=== PATIENT | male | born 1975 | race Caucasian/White ===

== ENCOUNTER 2021-05-02 11:09 | Inpatient (IN) | payer OTHER, SELFPAY ==
[2021-05-02] VITALS (32 sets, daily range): BP systolic 96–139; BP diastolic 74–105; PULSE 56–74; RESP 11–21; TEMP 36.7–36.8; O2SAT 90–100; BMI 32.3
--- NOTE | ~2021-05-02 | XR_ITS ---
EXAMINATION: XR chest 1V portable EXAM DATE: 05/02/2021 11:34 INDICATION: Midsternal chest pain radiating to left arm. Emesis. TECHNIQUE: Portable AP frontal chest x-ray was obtained. There is no prior study for comparison. FINDINGS: The lungs are clear. There are no pleural effusions. Cardiac silhouette is prominent but magnified on this AP technique. There is no pneumothorax suspected. The bones and soft tissues are unremarkable. IMPRESSION: No acute cardiopulmonary findings. Reviewed, dictated and finalized at location B. E CHECKER
--- NOTE | ~2021-05-02 | XR_ITS ---
XR chest 1V portable DATE: 05/04/2021 10:20 INDICATION: Shortness of breath TECHNIQUE: Portable AP chest on 05/04/2021 at 1004 hours COMPARISON: 05/02/2021 portable AP chest FINDINGS: There is bibasilar infiltrate and/atelectasis, most prominent in the left lower lobe. Heart size is not optimally evaluated on AP projection because of magnification. No pleural effusion or pulmonary vascular congestion or pneumothorax is evident. IMPRESSION: Bibasilar infiltrates and/atelectasis, most prominent in the left lower lobe Reviewed, dictated and finalized at location A. RTRAIN DESIGN ENGINEER IMPRESSION: Bibasilar infiltrates and/atelectasis, most prominent in the left l ower lobe
--- NOTE | 2021-05-02 11:15 | ECG_ITS ---
Measurements Intervals [place] Rate: 54 P: [place]: 0 QRS: 13 QRSD: 126 T: 79 QT: 436 QTc: 416 Interpretive Statements SINUS RHYTHM BORDERLINE AV CONDUCTION DELAY INTRAVENTRICULAR CONDUCTION DELAY INFERIOR ST ELEVATION MYOCARDIAL INFARCT- ACUTE POSTERIOR INFARCT, ACUTE BASELINE ARTIFACT- II, III, AVR, AVF, V3-V6 ABNORMAL ECG Electronically Signed On 05-02-2021 12:55:30 PARKS RECREATION DIRECTOR by Kong Jefferson D.O.
--- NOTE | 2021-05-02 11:18 | ED_ITS ---
HPI - Chest Pain General Chief Complaint: Chest Pain Stated Complaint: STEMI Time Seen by Provider: 05/02/21 11:14 Source: patient, EMS and RN notes reviewed Mode of arrival: EMS Limitations: no limitations History of Present Illness HPI narrative: Patient presents by ambulance with chest pain started 45 minutes prior to arrival to the emergency room, 6 out of 10,. History of hypertension, no family history of coronary artery disease, patient does not smoke. EKG on arrival to the emergency room showed acute inferior HI. STEMI code was called prior to patient arrival to the emergency room. Related Data Allergies Allergy/AdvReac Type Severity Reaction Status Date / Time No Known Allergies Allergy Verified 05/02/21 11:15 Review of Systems Review of Systems: CONSTITUTIONAL: Denies fever, chills, or sweats. EYES: Denies visual changes, redness, or discharge. ENT: Denies rhinorrhea, congestion, sore throat, or otalgia. CARDIOVASCULAR: Denies chest pain, palpitations, or edema. RESPIRATORY: Denies cough or dyspnea. GASTROINTESTINAL: Denies abdominal pain, nausea, vomiting, or diarrhea. GENITOURINARY: Denies dysuria or hematuria. SKIN: Denies rash or itching. MUSCULOSKELETAL: Denies back pain, joint pain, or myalgia. NEUROLOGIC: Denies headache, numbness, or weakness. PSYCHIATRIC: Denies anxiety or depression. Exam Narrative: General appearance: Well-developed, well-nourished Skin: Normal color Head: Normocephalic, nontraumatic Eyes: Clear conjunctiva ENT: Oropharynx normal, ears normal, nose normal Neck: Supple, nontender Chest and respiratory: Airway patent, no respiratory distress, no accessory muscle use Heart: Regular rate/rhythm Abdomen: Soft, nontender, no organomegaly, quiet bowel sounds Vascular: Normal peripheral pulses, normal capillary refill. 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 tested, no gross motor deficit Course Course Emergency Course: Stable Vital Signs Vital signs: Vital Signs Temperature 36.8 C 05/02/21 11:10 Pulse Rate 58 L 05/02/21 11:10 Respiratory Rate 20 05/02/21 11:10 Blood Pressure 123/93 H 05/02/21 11:10 Pulse Oximetry 100 05/02/21 11:10 Temperature 36.8 C 05/02/21 11:10 Pulse Rate 58 L 05/02/21 11:10 Respiratory Rate 20 05/02/21 11:10 Blood Pressure 123/93 H 05/02/21 11:10 Pulse Oximetry 100 05/02/21 11:10 MDM - Chest Pain MDM Narrative Medical decision making narrative: Acute inferior HI Differential Diagnosis Differential diagnosis: Likely st elevation myocardial infarction Critical Care Time Critical Care Time Critical Care Time: Yes Total Critical Care Time: 45 Discharge Plan Discharge Clinical Impression: ST elevation (STEMI) myocardial infarction Patient Disposition: Still a Patient Condition: Guarded Prognosis Additional Instructions: Admit to cardiac cath Follow-up/Referrals: Shelby,Ricky Dickson PA-C [Primary Care Provider] -
[2021-05-02] MEDS: MORPHINE SULFATE (*CRX) 4 MG/ML INJ IV PUSH (11:20)
[2021-05-02] MEDS: ONDANSETRON INJ 4 MG/2 ML VIAL IV PUSH ×3 (11:21→18:46)
[2021-05-02] MEDS: HEPARIN SODIUM 5,000 UNITS/ML VIAL 4000 UNITS IV PUSH (11:21)
[2021-05-02] MEDS: MORPHINE SULFATE (*CRX) 4 MG/ML INJ (11:34)
--- NOTE | 2021-05-02 11:34 | PC.NURSE ---
2 mg of morphine given per protocol.
--- NOTE | 2021-05-02 11:35 | PC.NURSE ---
cp rating 6-7/10. p 58. bp 135/96. pts at bedside.
[2021-05-02 11:38] LABS: Basophils Absolute Auto 0.1 K/mm3 (0.0-0.1); Basophils Percent Auto 1.1 % (0.2-1.2); Eosinophils Absolute Auto 0.2 K/mm3 (0-0.3); Hematocrit 51.9 % (42.0-52.0); Hemoglobin 17.4 g/dL (14.0-18.0); Immature Granulocyte Absolute 0.02 K/mm3 (0.00-0.031); Immature Granulocyte Percent A 0.2 % (0-0.5); Lymphocytes Absolute Auto 3.14 K/mm3 (0.9-3.2); Lymphocytes Percent Auto 32.3 % (18.3-44.2); Mean Corpuscular HGB Conc 33.5 g/dl (32-36); Mean Corpuscular Hemoglobin 31.5 pg (26-34); Monocytes Absolute Auto 0.8 K/mm3 (0.1-0.6); Monocytes Percent Auto 8.1 % (2.6-8.5); Neutrophils Absolute Auto 5.5 K/mm3 (1.3-6.7); Neutrophils Percent Auto 56.3 % (45.5-73.1); Platelet Count Result 196 k/mm3 (150-375); Red Blood Count 5.52 M/mm3 (4.6-6.20); Red Cell Distribution Width 12.6 % (11.5-14.5); White Blood Count 9.7 K/mm3 (4.5-10.0)
--- NOTE | 2021-05-02 11:43 | PM.IMHP ---
H&P: HPI History of Present Illness Date/Time: 05/02/21 11:43 Chief Complaint: Chest pain Narrative: Date of service: 05/02/2021 Reason for admission: STEMI History : Patient is a 45 yo male with a history of polycystic kidney disease and HTN who presented to the ED with chest pain. Pain started 1 hour prior to admission. Acute onset with radiation to Left arm. Associated N, SOB, Vomiting and clamminess. Initial ECG show Inferior ST elevation with posterior extension. Heparin, aspirin, morphine given. No recent CP, SOB, syncope, presyncope, PND, orthopnea, palpitations or edema. Review of Systems Review of Systems: All systems reviewed & are unremarkable except as noted in HPI and below Constitutional: Constitutional: Denies weakness Eyes: Eyes: Denies blurry vision ENT: Reports Normal hearing present Cardiovascular: Cardiovascular: Reports chest pain Respiratory: Respiratory: Reports dyspnea Gastrointestinal: Gastrointestinal: Reports nausea and Reports vomiting Genitourinary: Genitourinary: Denies dysuria Musculoskeletal: Musculoskeletal: Denies neck pain Integumentary/Breasts: Skin/Breast: Denies dry skin and Denies pruritus Neurologic: Denies headache(s) and Denies numbness Psychiatric: Psychiatric: Denies no additional psychiatric complaints and Denies behavioral changes Endocrine: Endocrine: Denies cold intolerance Hematologic/Lymphatic: Hematologic/Lymphatic: Denies easy bleeding Allergic/Immunologic: Allergic/Immunologic: Denies GI upset with certain foods PMFSH Past Medical History Medical History (Updated 05/02/21 @ 11:59 by Jovani Wooten MD) Hypertension Polycystic kidney disease Family History Family History (Updated 05/02/21 @ 12:00 by Jovani Wooten MD) Mother Heart disease Father Polycystic kidney disease Social History Social History (Updated 05/02/21 @ 12:01 by Jovani Wooten MD) Social History: social alcohol and no drug use Smoking status: Never smoker Meds Home Medications and Allergies Home Medications Medication Instructions Recorded Confirmed Type No Home Medications 05/02/21 05/02/21 History Allergies Allergy/AdvReac Type Severity Reaction Status Date / Time No Known Allergies Allergy Verified 05/02/21 11:15 Vital Signs Vital Signs - 24 hr 05/02/21 11:10 05/02/21 11:26 05/02/21 11:30 Temperature 36.8 C Pulse Rate 58 L 57 L 56 L Respiratory Rate 20 17 20 Blood Pressure 123/93 H Pulse Oximetry 100 99 100 05/02/21 11:32 Temperature Pulse Rate 57 L Respiratory Rate 11 L Blood Pressure 136/105 H Pulse Oximetry 97 Exam Narrative: awake alert oriented appears to be in distress Const: General: in distress HENMT: General nose exam: Normal nares present Eyes: Sclera: sclerae normal Neck: Neck: supple and no JVD Chest: Other: no reproducible chest wall pain to palpation Resp: Auscultation: clear to auscultation bilaterally Cardio: Rate: regular rate Rhythm: regular rhythm GI: Inspection: non-distended GI Palp: Yes Soft to palpation and No Tenderness to palpation present (GI) Skin: General skin exam: normal color Neuro: Cognition (Neuro): normal cognition Speech: normal speech Extrem: General: normal to inspection Psych: Mental Status: mental status grossly normal H&P: Results ECG Interpretation: EKG is personally reviewed and analyzed showing inferiorposterior acute injury. Abnormal EKG Assessment and Plan Assessment and plan (1) ST elevation (STEMI) myocardial infarction: Qualifiers: Involved coronary artery: unspecified coronary artery Qualified Code(s): I21.3 - ST elevation (STEMI) myocardial infarction of unspecified site Code(s): I21.3 - ST elevation (STEMI) myocardial infarction of unspecified site Status: Acute Assessment and Plan: patient is presenting with an acute inferior posterior myocardial infarction. He has alre
--- NOTE | 2021-05-02 11:49 | PC.NURSE ---
Pt taken to lab tech by cath team
[2021-05-02 11:53] LABS: Alanine Aminotransferase 34 U/L (4-50); Albumin Level 4.8 g/dL (3.5-5.1); Alkaline Phosphatase 72 U/L (38-126); Anion Gap 10 mmol/L (8-16); Aspartate Amino Transferase 29 U/L (17-59); Bilirubin,Total 0.8 mg/dL (0.2-1.3); Blood Urea Nitrogen 32 mg/dL (9-20); Calcium 10.3 mg/dL (8.4-10.2); Carbon Dioxide 26 mmol/L (22-30); Chloride 103 mmol/L (98-107); Cholesterol 177 mg/dL (0-200); Estimated CRCL calculation 73 ml/min; Estimated Glomerular Filt Rate 43; Glucose 100 mg/dL (65-110); HDL Direct 42 mg/dL; Potassium 3.7 mmol/L (3.4-5.0); Sodium 139 mmol/L (137-145); Triglycerides 280 mg/dL (<150)
[2021-05-02 12:03] LABS: LDL Cholesterol Direct 76 mg/dL
[2021-05-02 12:06] LABS: Troponin I < 0.012 ng/mL (0.000-0.034)
--- NOTE | 2021-05-02 13:03 | ECG_ITS ---
Measurements Intervals [place] Rate: 71 P: 9 [place]: 224 QRS: -29 QRSD: 135 T: 19 QT: 411 QTc: 447 Interpretive Statements SINUS RHYTHM WITH FIRST DEGREE AV BLOCK VENTRICULAR PREMATURE COMPLEX INCOMPLETE RIGHT BUNDLE BRANCH BLOCK INFERIOR INFARCT, PROBABLY RECENT NONSPECIFIC ST ELEVATION IN ANTEROLATERAL LEADS BASELINE ARTIFACT- I, II, AVR ABNORMAL ECG Electronically Signed On 05-02-2021 14:47:57 SURFACE ROOM SHOP OPTICIAN by Kong Jefferson D.O.
--- NOTE | 2021-05-02 13:08 | WPDCARDPROC ---
Cardiac Cath Procedure Note Date of procedure:: 05/02/21 Performing physician:: Santino Rollins MD Indication:: inferior wall ND Brief clinical history:: this is a 45-year-old patient without previous history of cardiac disease who developed chest pain about an hour prior to coming into the hospital emergency room this morning. His ECG is diagnostic of acute inferior wall current of injury. In this setting he is being brought emergently to the cardiac catheterization lab. Procedure Procedure performed:: Emergency coronary angiography emergency PCI involving PTCA, thrombectomy and JAYDEN to the right coronary artery left ventriculography Sedation/Medication given:: fentanyl 50 mg Versed 2 mg case start time 12:02 p.m case finish time 1:00 p.m. sedation provided by Najma Oviedo RN, trained observer Access site:: right femoral artery Estimated blood loss:: 30 cc Procedure note:: patient was brought to the cardiac catheterization lab in the emergency setting. The right femoral triangle was prepared and draped in the normal fashion. Anesthesia was given with 1% lidocaine infiltrated locally. Using modified Seldinger technique a 6 Gren[place] sheath was placed into the right femoral artery. I then performed left coronary angiography using standard 5 Gren[place] FL4 catheter. I then performed right coronary angiography using a 6 [place] JR4 guiding catheter. PCI of the right coronary artery was then recommended carried out as detailed below. Following PCI of the right coronary artery we then used a guiding catheter to administer 200 mcg of intracoronary nitroglycerin and a bolus of intracoronary Integrilin. Integrilin infusion was then started. The patient had received aspirin in the emergency room prior to PCI he received 180 mg of oral Brilinta and was anticoagulated with bolus and infusion of Angiomax for this in PCI. While the patient was being prepped for the procedure in the crime lab analyst out before arterial access he did arrest with ventricular fibrillation which was counter shocked with 200 joules x2 which restored sinus rhythm. Following PCI used a 5 Grenadian angled pigtail catheter to measure left-sided hemodynamics and to inject LV g in the CLARK projection. Procedure was then terminated the patient was taken to the ICU in critical condition. There were no signs of any procedural complications nor any signs of a groin hematoma upon leaving the crime lab analyst. Findings:: Hemodynamics: Central aortic pressure is 116/80 left ventricle 116/5 end-diastolic 16. There was no gradient on pullback across the aortic valve. Left ventricle: The left ventricle was injected in the CLARK projection. Opacification of the LV was of poor quality during this angiogram. LV overall appears to be of normal size and the inferior wall appears to be akinetic the remainder of the LV contracts well the ejection fraction I would grossly estimated to be 50%. Once again the quality of this LV g was not good. The left main coronary artery is widely patent the left anterior descending is a large caliber vessel which is ectatic lead dilated proximally. The midportion and apical portion of the LAD is of normal caliber. Other than the ectatic dilatation the LAD is free of stenosis. The circumflex is a moderate to large caliber vessel giving rise to the marginal branches the circumflex system is free of significant disease. The right coronary artery is very large caliber and clearly is dominant to the posterior circulation the right coronary arteries 100% occluded in the 2nd portion. Intervention: The right coronary artery was engaged using the 6 Gren[place] JR4 guiding catheter. I used a 0.014 BMW wire to probe the occlusion was unsuccessful traversing the occlusion. The wire was tracking into an acute marginal branch repeatedly. I then used a 0.014 highway patrol pilot coronary guidewire and with some challenge I was able to traverse the occlusion and advance the wire into th
--- NOTE | 2021-05-02 13:09 | WPDCNINT ---
Assessment and Plan Assessment and plan (1) ST elevation (STEMI) myocardial infarction: Qualifiers: Involved coronary artery: unspecified coronary artery Qualified Code(s): I21.3 - ST elevation (STEMI) myocardial infarction of unspecified site Code(s): I21.3 - ST elevation (STEMI) myocardial infarction of unspecified site Status: Acute Assessment and Plan: Inferior MO status post complicated PCI of RCA Currently on Angiomax infusion Dual antiplatelet therapy -aspirin and Brilinta, beta-sue, ARB, statin ICU telemetry monitoring Echocardiogram (2) Polycystic kidney disease: Code(s): Q61.3 - Polycystic kidney, unspecified Status: Acute Assessment and Plan: Creatinine on presentation 1.7. Baseline creatinine unknown but patient states that his creatinine is above baseline although he is not aware of the actual number Monitor urine output electrolytes and creatinine IV fluids for renal protection since patient received contrast (3) Hypertension: Code(s): I10 - Essential (primary) hypertension Status: Acute Assessment and Plan: Resume beta-sue and JG-inhibitor Monitor and add additional medications as needed (4) Ischemic cardiomyopathy: Code(s): I25.5 - Ischemic cardiomyopathy Status: Acute Assessment and Plan: ARB and beta-sue Check echocardiogram (5) Ventricular fibrillation: Code(s): I49.01 - Ventricular fibrillation Status: Acute Assessment and Plan: Likely secondary to STEMI requiring 2 DC defibrillation. Patient now revascularized Will monitor in ICU. Obviously if ventricular arrhythmia recurs will consider starting amiodarone infusion. Additional Plan DVT prophylaxis -SCDs. Will add chemoprophylaxis if patient is not ambulatory by tomorrow Case discussed with Dr. Rollins from cardiology Total Critical Care Time - 32 minutes Due to a high probability of clinically significant, life threatening deterioration, the patient required my highest level of preparedness to intervene emergently and I personally spent this critical care time directly and personally managing the patient. This critical care time included obtaining a history; examining the patient; pulse oximetry; ordering and review of studies; arranging urgent treatment with development of a management plan; evaluation of patient's response to treatment; frequent reassessment; and discussions with other providers. It was exclusive of separately billable procedures and treating other patients and teaching time. Please see Assessment and Plan section and the rest of the note for further information on patient assessment and treatment Churn Driller Helper Consult Note Consult date: 05/02/21 HPI: Louie Rodriguez is a 45 year old male 45 with a PMH of polycystic kidney disease and HTN who presented to the ED with chest pain. Pain started around 10:00 a.m. when he was working on his desk. Pain was in the center of the chest and 10 out 10 severe with radiation to Left arm. Pain was pressure in quality and was associated with, SOB, Vomiting and clamminess. On arrival to ER, initial ECG show Inferior ST elevation with posterior extension. Pt was given Heparin, aspirin, morphine and taken to field laborer. Patient had 2 episodes of VFib prior to cardiac catheterization and was defibrillated back to sinus rhythm. Cardiac catheterization showed 100% occlusion of RCA. There was extensive amount of thrombus in the RCA. Stent was placed and some amount of thrombus was suctioned. Patient was given intracoronary nitroglycerin and intracoronary Integrilin. Despite procedure patient continued to had some ST elevation on his EKG and is improved but persistent chest pressure. The wall was akinetic with EF of 50% on the LV gram At this time patient is in ICU and denies any complaints he states this chest pain has resolved and denies any nausea vomiting palpitations or shortness of breath. Al
[2021-05-02] MEDS: EPTIFIBATIDE 0.75 MG/ML 75 MG/100 ML VIAL 20.64 MG IV CONT ×3 (13:10→20:58)
--- NOTE | 2021-05-02 13:30 | ADMGEN ---
This patient, Louie Rodriguez, was admitted to Intensive Care Unit-8 at 1320. Patient/family oriented to hospital policies and general routines including ID bracelet, bed and alarms, visiting hours, pain management, procedures, bathroom and other care routines, personal items, smoking policy, room service/diet, and visiting hours. Information on how to activate the Rapid Response Team has been discussed. Patient/Family are encouraged to report perceived risks to care and to ask questions if they do not understand what they are told or what they should do.
[2021-05-02] MEDS: SODIUM CHLORIDE 0.9% IV 1,000 ML 125 ML IV CONT (14:06)
[2021-05-02 14:16] LABS: Prothrombin Time 47.2 Seconds (11.1-14.7)
[2021-05-02 14:19] LABS: Partial Thromboplastin Time 154.2 SECONDS (22.3-36.8)
[2021-05-02 14:26] LABS: INR 5.4
--- NOTE | 2021-05-02 14:31 | P.PNCROSS_ITS ---
Event Note Event Note Event Note: Patient while speaking to the hide and skin classer and went again into VFib. Immediately defibrillator was brought to the room and attached to patch the patient already had on patient was shocked with 200 joules. Patient converted to sinus rhythm. Within few seconds patient became awake and alert. He was nauseous and vomited. Zofran was given. He was placed on oxygen and has stable blood pressure this time. Patient has been started on amiodarone bolus 300 mg and then will be started on IV infusion of amiodarone. I will also check BMP and Mag level. Cart will be at bedside and patient will stay connected to the defibrillator for now. Plan discussed with Dr. Rollins who was at bedside. Additional critical care time 15 minutes Due to a high probability of clinically significant, life threatening deterioration, the patient required my highest level of preparedness to intervene emergently and I personally spent this critical care time directly and personally managing the patient. This critical care time included obtaining a history; examining the patient; pulse oximetry; ordering and review of studies; arranging urgent treatment with development of a management plan; evaluation of patient's response to treatment; frequent reassessment; and discussions with o ther providers. It was exclusive of separately billable procedures and treating other patients and teaching time. Please see Assessment and Plan section and the rest of the note for further information on patient assessment and treatment
[2021-05-02] MEDS: AMIODARONE 150 MG/D5W 100 ML 150 MG/100 ML BAG 600 MG IV CONT ×2 (14:45→14:46)
[2021-05-02] MEDS: AMIODARONE 360 MG/D5W 200 ML 360 MG/200 ML BAG 33.33 MG IV CONT ×2 (14:46→20:15)
[2021-05-02 14:50] LABS: Cholesterol 161 mg/dL (0-200); HDL Direct 45 mg/dL; Triglycerides 137 mg/dL (<150)
[2021-05-02 15:01] LABS: LDL Cholesterol Direct 74 mg/dL
[2021-05-02 15:09] LABS: Anion Gap 11 mmol/L (8-16); Blood Urea Nitrogen 33 mg/dL (9-20); Calcium 10.5 mg/dL (8.4-10.2); Carbon Dioxide 24 mmol/L (22-30); Chloride 105 mmol/L (98-107); Estimated CRCL calculation 69 ml/min; Estimated Glomerular Filt Rate 41; Glucose 102 mg/dL (65-110); Potassium 3.8 mmol/L (3.4-5.0); Sodium 140 mmol/L (137-145)
[2021-05-02] MEDS: NEOMYCIN/POLYMYXIN/BACITRACIN OINTMENT PACKET 1 PACKET (18:02)
[2021-05-02] MEDS: METOPROLOL TARTRATE 25 MG TABLET PO (20:16)
[2021-05-02] MEDS: TICAGRELOR 90 MG TABLET PO (20:17)
--- NOTE | 2021-05-02 22:58 | PC.NURSE ---
[address] Robbins regarding patient complaint of continued chest pressure of a 3/. orders received.
[2021-05-02] MEDS: ACETAMINOPHEN 325 MG TABLET 650 MG PO (23:04)
[2021-05-02] MEDS: MORPHINE SULFATE (*CRX) 2 MG/ML INJ IV PUSH (23:59)
[2021-05-03] VITALS (28 sets, daily range): BP systolic 109–126; BP diastolic 78–91; PULSE 61–78; RESP 10–24; TEMP 36.6–37; O2SAT 93–99
--- NOTE | 2021-05-03 00:16 | PC.NURSE ---
05/02/21 1945 Critical troponin results of 44.8 received. Orders to not call critical troponin
[2021-05-03] MEDS: ONDANSETRON INJ 4 MG/2 ML VIAL IV PUSH ×3 (01:39→14:47)
[2021-05-03] MEDS: EPTIFIBATIDE 0.75 MG/ML 75 MG/100 ML VIAL 20.64 MG IV CONT (01:47)
[2021-05-03] MEDS: AMIODARONE 360 MG/D5W 200 ML 360 MG/200 ML BAG 33.33 MG IV CONT ×4 (02:16→20:05)
[2021-05-03 04:51] LABS: Hematocrit 42.2 % (42.0-52.0); Hemoglobin 14.5 g/dL (14.0-18.0); Mean Corpuscular HGB Conc 34.4 g/dl (32-36); Mean Corpuscular Hemoglobin 30.9 pg (26-34); Mean Corpuscular Volume 89.8 fl (80-100); Mean Platelet Volume 9.1 fl (7.4-10.4); Platelet Count Result 221 k/mm3 (150-375); Red Cell Distribution Width 12.8 % (11.5-14.5); White Blood Count 16.2 K/mm3 (4.5-10.0)
[2021-05-03 05:35] LABS: Alanine Aminotransferase 45 U/L (4-50); Albumin Level 3.6 g/dL (3.5-5.1); Alkaline Phosphatase 38 U/L (38-126); Anion Gap 7 mmol/L (8-16); Aspartate Amino Transferase 195 U/L (17-59); Bilirubin,Total 0.9 mg/dL (0.2-1.3); Blood Urea Nitrogen 25 mg/dL (9-20); Calcium 8.8 mg/dL (8.4-10.2); Carbon Dioxide 24 mmol/L (22-30); Chloride 107 mmol/L (98-107); Estimated CRCL calculation 82 ml/min; Estimated Glomerular Filt Rate 50; Glucose 131 mg/dL (65-110); Magnesium 1.6 mg/dL (1.6-2.3); Potassium 3.7 mmol/L (3.4-5.0); Sodium 138 mmol/L (137-145)
--- NOTE | 2021-05-03 06:33 | ECG_ITS ---
Measurements Intervals [place] Rate: 70 P: 21 [place]: 194 QRS: -33 QRSD: 125 T: -24 QT: 410 QTc: 444 Interpretive Statements SINUS RHYTHM INCOMPLETE RIGHT BUNDLE BRANCH BLOCK NONSPECIFIC ST ELEVATION IN ANTTEROLATERAL LEADS INFERIOR ST ELEVATION MYOCARDIAL INFARCT- ACUTE ABNORMAL ECG Electronically Signed On 05-03-2021 12:04:55 TEACHING SUPERVISOR by Kong Jefferson D.O.
[2021-05-03] MEDS: MORPHINE SULFATE (*CRX) 2 MG/ML INJ IV PUSH (07:29)
--- NOTE | 2021-05-03 07:32 | PC.NURSE ---
0635 called to patients room for c/o mid sternal chest pressure of 6 on 0/10 scale. appears uncomfortable. 0638 PO nitro given as per protocol 0644 EKG completed and call placed to cardiology via the exchange. 0649 patient continues to complain of mid sternal chest pressure of a 6. nausea and diaphoretic at this time. No obvious changes in cardiac rhythm 0658 spoke with and updated on conditon. previous ekg and current ekg faxed as requested. 0730 2mg Morphine given ivp per prn order.
[2021-05-03] MEDS: ASPIRIN 81 MG CHEWABLE TABLET PO (08:12)
[2021-05-03] MEDS: TICAGRELOR 90 MG TABLET PO ×2 (08:13→20:09)
[2021-05-03] MEDS: SODIUM CHLORIDE 0.9% IV 1,000 ML 100 ML IV CONT ×2 (08:16→20:22)
--- NOTE | 2021-05-03 08:23 | WPDMODSED ---
Moderate Sedation Note-Pt Data Patient Data Allergies Allergy/AdvReac Type Severity Reaction Status Date / Time No Known Allergies Allergy Verified 05/02/21 11:15 Home Medications Medication Instructions Recorded Confirmed Type amitriptyline 25 mg PO DAILY 05/02/21 05/02/21 History amlodipine-benazepril 1 cap PO DAILY 05/02/21 05/02/21 History bupropion HCl 300 mg PO QAM 05/02/21 05/02/21 History metoprolol ta-hydrochlorothiaz 1 tablet PO DAILY 05/02/21 05/02/21 History [Lopressor HCT] Current Medications: Active Medications Acetaminophen (Acetaminophen 325 Mg Tablet) 650 mg PO Q4H PRN PRN Reason: Mild Pain (1-3) Last Admin: 05/02/21 23:04 Dose: 650 mg Documented by: Aspirin (Aspirin 81 Mg Chewable Tablet) 81 mg PO DAILY@0800 [facility] Last Admin: 05/03/21 08:12 Dose: 81 mg Documented by: Eptifibatide (Integrilin) 75 mg in 100 mls @ 20.64 mls/hr IV CONT .Q4H51M [facility] Last Admin: 05/03/21 01:47 Dose: 2 mcg/kg/min, 20.64 mls/hr Documented by: Amiodarone HCl/Dextrose (Nexterone 360 Mg/D5w 200 Ml) 360 mg in 200 mls @ 33.333 mls/hr IV CONT .Q6H [facility] Last Admin: 05/03/21 08:08 Dose: 1 mg/min, 33.33 mls/hr Documented by: Sodium Chloride (Normal Saline Iv) 1,000 mls @ 100 mls/hr IV CONT .Q10H [facility] Stop: 05/04/21 03:54 Last Infusion: 05/03/21 08:17 Dose: 0 mls/hr Documented by: Potassium Chloride (Kcl 40 Meq/D5w 500 Ml Peripheral) 500 mls @ 125 mls/hr IVPB ONCE ONE Stop: 05/03/21 12:14 Magnesium Sulfate (Magnesium Sulf 2 Gm/Water 50ml) 2 gm in 50 mls @ 50 mls/hr IVPB ONCE ONE Stop: 05/03/21 09:14 Labetalol HCl (Labetalol Hcl Inj 100 Mg/20 Ml Vial) 20 mg IV PUSH Q4H PRN PRN Reason: SBP > 160 and HR > 60 Losartan Potassium (Losartan Potassium 12.5 Mg Tablet) 12.5 mg PO DAILY [facility] Metoprolol Tartrate (Metoprolol Tartrate 25 Mg Tablet) 25 mg PO Q12HR [facility] Last Admin: 05/02/21 20:16 Dose: 25 mg Documented by: Morphine Sulfate (Morphine Sulfate (*Crx) 2 Mg/Ml Inj) 2 mg IV PUSH Q3H PRN PRN Reason: Pain Last Admin: 05/03/21 07:29 Dose: 2 mg Documented by: Nitroglycerin (Nitroglycerin Sl 0.4 Mg Tablet) 0.4 mg SUBLINGUAL Q5MIN PRN PRN Reason: Chest Pain Ondansetron HCl (Ondansetron Inj 4 Mg/2 Ml Vial) 4 mg IV PUSH Q4H PRN PRN Reason: Nausea And Vomiting Last Admin: 05/03/21 08:16 Dose: 4 mg Documented by: Rosuvastatin Calcium (Rosuvastatin 10 Mg Tablet) 20 mg PO DAILY [facility] Ticagrelor (Ticagrelor 90 Mg Tablet) 90 mg PO Q12HR [facility] Last Admin: 05/03/21 08:13 Dose: 90 mg Documented by: Sedation/Anesthesia: No previous sedation/anesthesia problems (including family history). [facility] Past Medical History Medical History Hypertension Polycystic kidney disease Family History Family History Mother Heart disease Father Polycystic kidney disease Social History Social History (Updated 05/02/21 @ 13:42 by Joss Robbins MD) Social History: Smoked long time ago and quit almost 10 years ago, social alcohol and no drug use Smoking status: Never smoker Alcohol intake: unknown Substance use: unknown Spiritual care concerns: No Mod Sed Physical Exam Physical Exam Pre Procedural Exam: Normal: Throat Hours since solid foods: 12 Hours since liquid intake: 12 Mallampati Classification: class II Internal Medicine - PN: Obj Da Vital Signs Vital Signs: Vital Signs - 24 hr 05/02/21 11:10 05/02/21 11:26 05/02/21 11:30 Temperature 36.8 C Pulse Rate 58 L 57 L 56 L Pulse Rate [Bilateral Pedal (Dorsalis Pedis) Palpation] Respiratory Rate 20 17 20 Blood Pressure 123/93 H Pulse Oximetry 100 99 100 05/02/21 11:32 05/02/21 11:46 05/02/21 13:25 Temperature Pulse Rate 57 L 57 L 71 Pulse Rate [Bilateral Pedal (Dorsalis Pedis) Palpation] 71 Respiratory Rate 11 L 16 21 H Blood Pressure 136/105 H 139/98 H 123/89 Pulse Oximetry 97 100 98 05/02/21 13:45 05/02
--- NOTE | 2021-05-03 08:24 | WPDHPUPDATE1 ---
History and Physical Update Update Date/Time: 05/03/21 08:24 History and Physical has been reviewed, including an updated exam of the patient. There are NO changes in the patient's condition. Risks, benefits, and alternatives have been discussed and questions answered. Patient agrees to proceed with procedure. Patient had recurrent chest discomfort with diaphoresis post primary PCI performed yesterday. He is being brought to the lab support tech to re-evaluate coronary anatomy and stent.
--- NOTE | 2021-05-03 09:00 | ECHO_ITS ---
Patient Info Name: Louie Rodriguez Age: 45 years : 1975 Gender: Male Ht: 78 in Wt: 280 lbs BSA: 2.67 m2 HR: 68 bpm BP: 112 / 88 mmHg Heart Rhythm: Sinus Rhythm Exam Date: 05/03/2021 2:53 PM Exam Location: [facility] Patient Status: Inpatient Admit Date: 05/02/2021 Staff Ordering Physician: Joss Robbins MD Radio Producer: Kasi Mora, BRANDAN, RT Attending Provider: Santino Rollins MD Exam Type: CA echo doppler color flow Study Info Indications I21.19 - ST elevation (STEMI) myocardial infarction involving other coronary artery of inferior wall Complete two-dimensional, color flow and Doppler transthoracic echocardiogram is performed with contrast to opacify the left ventricle and to improve the deliniation of the left ventricle endocardial borders. Strain analysis performed. Summary 1. Complete two-dimensional, color flow and Doppler transthoracic echocardiogram is performed with contrast to opacify the left ventricle and to improve the deliniation of the left ventricle endocardial borders. 2. Strain analysis performed. 3. Left ventricular chamber dimension is normal. 4. Left ventricular systolic function is mildly reduced, estimated at 45-50%. 5. There is mildly increased left ventricular wall thickness. 6. The left ventricular diastolic function is grade I diastolic dysfunction. 7. Global longitudinal strain is abnormal at -12 %. 8. The basal inferior wall, mid inferior wall, basal inferoseptal, mid inferoseptal, basal inferolateral wall, and mid inferolateral wall are hypokinetic. 9. Right ventricular chamber dimension is moderately enlarged. 10. Right ventricular systolic function is reduced. 11. There is mild mitral valve regurgitation. 12. There is mild tricuspid valve regurgitation. 13. The aortic root size at the sinus of Valsalva is moderately dilated. Left Ventricle Left ventricular chamber dimension is normal. Left ventricular systolic function is mildly reduced, estimated at 45-50%. There is mildly increased left ventricular wall thickness. The left ventricular diastolic function is grade I diastolic dysfunction. Global longitudinal strain is abnormal at -12 %. The basal inferior wall, mid inferior wall, basal inferoseptal, mid inferoseptal, basal inferolateral wall, and mid inferolateral wall are hypokinetic. All other flores appear normal. Right Ventricle Right ventricular chamber dimension is moderately enlarged. Right ventricular systolic function is reduced. Left Atria Left atrial chamber dimension is normal. Right Atria Right atrial chamber dimension is normal. Atrial Septum Intact interatrial septum visualized by color flow imaging. Aortic Valve The aortic valve is trileaflet. There is no aortic valve sclerosis. There is no aortic valve stenosis. There is trace aortic valve regurgitation. Pulmonic Valve The pulmonic valve is normal. There is no pulmonic valve stenosis. There is trace pulmonic regurgitation. Mitral Valve The mitral valve has normal leaflets. There is no mitral valve stenosis. There is mild mitral valve regurgitation. Tricuspid Valve The tricuspid valve leaflets are normal. There is no significant tricuspid valve stenosis. There is mild tricuspid valve regurgitation. No pulmonary hypertension, estimated pulmonary arterial systolic pressure is 30 mmHg. Inferior Vena Cava Inferior vena cava is not well visualized. Aorta The aortic root size at the sinus of Valsalva is moderately dila
--- NOTE | 2021-05-03 09:14 | WPDINTPN ---
Progress Note: A&P Assessment and Plan (1) ST elevation (STEMI) myocardial infarction: Qualifiers: Involved coronary artery: unspecified coronary artery Qualified Code(s): I21.3 - ST elevation (STEMI) myocardial infarction of unspecified site Code(s): I21.3 - ST elevation (STEMI) myocardial infarction of unspecified site Status: Acute Assessment and Plan: Inferior SD status post complicated PCI of RCA 05/02. Completed course of Angiomax infusion yesterday. Currently on Dual antiplatelet therapy -aspirin and Brilinta, beta-sue, ARB, statin Patient has recurrent chest pain this morning with persistent ST elevation on EKG. Cardiology is planning to take patient back to cardiac catheterization lab to re-evaluate. Continue ICU telemetry monitoring Echocardiogram pending P.r.n. IV morphine for pain control (2) Polycystic kidney disease: Code(s): Q61.3 - Polycystic kidney, unspecified Status: Acute Assessment and Plan: Creatinine on presentation 1.7. Baseline creatinine unknown but patient states that his creatinine is above baseline although he is not aware of the actual number His creatinine is 1.5 this morning. He did receive IV fluids yesterday for renal protection post catheterization. Since patient is going back to catheterization lab I will resume IV fluids. Monitor urine output electrolytes and creatinine (3) Hypertension: Code(s): I10 - Essential (primary) hypertension Status: Acute Assessment and Plan: Continue beta-sue and JG-inhibitor Currently in controlled range (4) Ischemic cardiomyopathy: Code(s): I25.5 - Ischemic cardiomyopathy Status: Acute Assessment and Plan: ARB and beta-sue Check echocardiogram (5) Ventricular fibrillation: Code(s): I49.01 - Ventricular fibrillation Status: Acute Assessment and Plan: Likely secondary to STEMI and ischemia requiring 2 DC defibrillation prior to procedure. Patient had another episode in the ICU post procedure requiring defibrillation. He had an episode of V-tach which spontaneously converted overnight. His electrolytes were checked and potassium was replaced He was given 300 mg amiodarone bolus and is currently on amiodarone infusion which will be continued Patient is going back to cardiac catheterization lab Replace low Mag and potassium again this morning Continue ICU telemetry monitoring Additional Plan DVT prophylaxis -SCDs. Will add chemoprophylaxis Total Critical Care Time - 30 minutes Due to a high probability of clinically significant, life threatening deterioration, the patient required my highest level of preparedness to intervene emergently and I personally spent this critical care time directly and personally managing the patient. This critical care time included obtaining a history; examining the patient; pulse oximetry; ordering and review of studies; arranging urgent treatment with development of a management plan; evaluation of patient's response to treatment; frequent reassessment; and discussions with other providers. It was exclusive of separately billable procedures and treating other patients and teaching time. Please see Assessment and Plan section and the rest of the note for further information on patient assessment and treatment Subjective Date/time seen: 05/03/21 09:14 Yesterday patient had a VFib in the afternoon and was defibrillated. Patient was started on amiodarone infusion. Patient had episode of V-tach later which spontaneously converted. Cardiology was notified and patient was continued on amiodarone of 1 milligram/minute. Early this morning patient started having chest pain again EKG was done and showed persistent ST elevation. Patient told me that he had chest pain on 6/10 severe earlier in the morning. Patient was given morphine and states that at this time his pain is 3/10. He states the pain is pressure in quality, does
--- NOTE | 2021-05-03 10:38 | WPDCARDPROC ---
Cardiac Cath Procedure Note Date of procedure:: 05/03/21 Performing physician:: Alden Wilson MD Procedure Procedure note:: EMERGENCY CARDIAC CATHETERIZATION AND PERCUTANEOUS CORONARY INTERVENTION REPORT DATE OF PROCEDURE: 05/03/2021 INDICATION FOR PROCEDURE: Recurrent chest pain in a patient with recent inferior ST-elevation AR BRIEF CLINICAL HISTORY: 45-year-old male with hypertension, no known prior cardiac history. Patient presented to [facility] Emergency Room on 05/02/2021 at 11:14 a.m. with complaints of chest pain that started about 45 minutes ago. His EKG showed inferior ST-elevation AR. He underwent emergent coronary angiogram which showed occluded mid RCA with significant thrombus burden. Patient had primary PCI with aspiration thrombectomy and placement of a 5 x 30 mm resolute giovanny zotarolimus stent at the target lesion by Dr. Rollins. Due to thrombus burden, patient was initiated on eptifibatide and was transferred to the ICU. Per staff, patient had received dual antiplatelet therapy with aspirin and ticagrelor on scheduled intervals. This morning, patient had recurrent chest discomfort with diaphoresis. Although patient's ST segment elevation in the inferior leads had not completely resolved post primary PCI yesterday, his repeat EKG this morning showed some worsening of ST elevation in the inferior leads with ST depression in the leads 1 and aVL. In this scenario, patient was brought back to the clinical laboratory medical director emergently for repeat coronary angiogram. Benefits and risks of the procedure were discussed with the patient in depth, and informed consent was obtained prior to the procedure. Risks of the procedure include but are not limited to vascular complications including groin hematoma, retroperitoneal bleed, vessel perforation; periprocedural AR, cardiac arrhythmias, stroke, contrast induced nephropathy, and . After discussing all the benefits, risks and alternatives, patient was willing to proceed with the procedure. PROCEDURES PERFORMED: 1. Emergent Left heart catheterization- Selective left and right coronary angiogram; hemodynamic assessment 2. Percutaneous coronary intervention- a) Aspiration thrombectomy of mid-distal segment of totally occluded RCA using Penumbra VAT RX aspiration thrombectomy catheter; b) intravascular ultrasound (IVUS) of RCA 3. Selective right common femoral angiogram and deployment of Angio-Seal hemostatic device 4. Moderate sedation-CPT code 61816 MODERATE SEDATION: Midazolam 4 mg; fentanyl 75 mcg. Start time 0847 , Stop time 1027 ; Total [id number]-wa-[id number] time 100 minutes; Landy Verdugo RN was trained observer for moderate sedation. ACCESS SITE: Right common femoral artery PROCEDURE NOTE: After obtaining informed consent, patient was emergently brought to catheterization lab and prepped and draped in a usual sterile manner. After local anesthesia with lidocaine, right common femoral artery access was taken with micropuncture needle followed by insertion of a 5 [place] sheath. Selective left and right coronary angiogram was performed using 5 [place] JL5 and JR4 catheters respectively. Orthogonal views were taken. Next, a 5 [place] pigtail catheter was advanced in the LV cavity and was flushed with normal saline. LV pressure measurement was performed. LV g was not performed. The gradient across the aortic valve was measured on the pullback of the catheter. Angiographic findings and details of intervention are given below. FINDINGS: LEFT MAIN CORONARY: The left main coronary artery is a large caliber, short vessel, no focal stenosis seen. The vessel is not well visualized. LEFT ANTERIOR DESCENDING ARTERY: The LAD has diffuse ectasia in the proximal and upper part of the mid segment, becomes a medium caliber vessel in the mid and smaller caliber vessel in the distal segment and which is LV apex. No significant focal stenosis seen in the LAD are its medium caliber major diagon
[2021-05-03] MEDS: METOPROLOL TARTRATE 25 MG TABLET PO ×2 (11:12→20:09)
[2021-05-03] MEDS: ROSUVASTATIN 10 MG TABLET 20 MG PO (11:12)
[2021-05-03] MEDS: LOSARTAN POTASSIUM 12.5 MG TABLET PO (11:12)
[2021-05-03] MEDS: MAGNESIUM SULF 2 GM/WATER 50ML 2 GM/50 ML BAG IVPB (11:14)
[2021-05-03] MEDS: ENOXAPARIN 100 MG/ML SYRINGE SUB-Q ×2 (12:23→20:10)
[2021-05-03] MEDS: ENOXAPARIN 30 MG/0.3 ML SYRINGE 28 MG SUB-Q ×2 (12:23→20:09)
[2021-05-03] MEDS: PERFLUTREN LIPID MICROSPHERES 1.5 ML VIAL DILUTED TO 10 ML TOTAL VOLUME IV PUSH (15:20)
[2021-05-03] MEDS: ACETAMINOPHEN 325 MG TABLET 650 MG PO ×2 (17:16→22:20)
[2021-05-04] VITALS (31 sets, daily range): BP systolic 114–137; BP diastolic 82–101; PULSE 72–103; RESP 12–26; TEMP 36.8–37.2; O2SAT 90–99
[2021-05-04] MEDS: MORPHINE SULFATE (*CRX) 2 MG/ML INJ IV PUSH ×4 (00:26→20:10)
[2021-05-04] MEDS: AMIODARONE 360 MG/D5W 200 ML 360 MG/200 ML BAG 33.33 MG IV CONT ×2 (02:07→08:47)
[2021-05-04 04:45] LABS: Hematocrit 38.2 % (42.0-52.0); Mean Corpuscular Volume 91.2 fl (80-100); Mean Platelet Volume 9.3 fl (7.4-10.4); Platelet Count Result 153 k/mm3 (150-375); Red Blood Count 4.19 M/mm3 (4.6-6.20); Red Cell Distribution Width 13.2 % (11.5-14.5); White Blood Count 14.4 K/mm3 (4.5-10.0)
[2021-05-04 04:59] LABS: Alanine Aminotransferase 56 U/L (4-50); Albumin Level 3.5 g/dL (3.5-5.1); Alkaline Phosphatase 35 U/L (38-126); Anion Gap 6 mmol/L (8-16); Aspartate Amino Transferase 218 U/L (17-59); Bilirubin,Total 0.9 mg/dL (0.2-1.3); Blood Urea Nitrogen 15 mg/dL (9-20); Calcium 8.1 mg/dL (8.4-10.2); Carbon Dioxide 23 mmol/L (22-30); Chloride 103 mmol/L (98-107); Estimated CRCL calculation 111 ml/min; Estimated Glomerular Filt Rate > 60; Glucose 124 mg/dL (65-110); Magnesium 1.9 mg/dL (1.6-2.3); Potassium 3.5 mmol/L (3.4-5.0); Sodium 132 mmol/L (137-145)
[2021-05-04 05:00] LABS: INR 1.2; Prothrombin Time 14.7 Seconds (11.1-14.7)
[2021-05-04 05:01] LABS: Partial Thromboplastin Time 43.8 SECONDS (22.3-36.8)
[2021-05-04] MEDS: ATORVASTATIN 40 MG TABLET 80 MG PO (08:46)
[2021-05-04] MEDS: ASPIRIN 81 MG CHEWABLE TABLET PO (08:46)
[2021-05-04] MEDS: LOSARTAN POTASSIUM 12.5 MG TABLET PO (08:46)
[2021-05-04] MEDS: HYDROcodone/acetaminophen (*CRX) 5-325 MG TABLET 1 TAB PO ×2 (08:46→12:54)
[2021-05-04] MEDS: TICAGRELOR 90 MG TABLET PO ×2 (08:48→21:04)
[2021-05-04] MEDS: ENOXAPARIN 100 MG/ML SYRINGE SUB-Q ×2 (08:48→20:13)
[2021-05-04] MEDS: POTASSIUM CHLORIDE 20 MEQ TABLET 40 MEQ PO (08:48)
[2021-05-04] MEDS: METOPROLOL TARTRATE 25 MG TABLET PO ×2 (08:48→21:04)
[2021-05-04] MEDS: ENOXAPARIN 30 MG/0.3 ML SYRINGE 28 MG SUB-Q ×2 (08:48→20:12)
[2021-05-04] MEDS: MAGNESIUM SULF 1 GM/D5W 100 ML 1 GM/100 ML BAG IVPB (08:48)
--- NOTE | 2021-05-04 09:20 | PM.PNCARD ---
Progress Note: A&P Assessment and Plan (1) ST elevation (STEMI) myocardial infarction: Qualifiers: Involved coronary artery: unspecified coronary artery Qualified Code(s): I21.3 - ST elevation (STEMI) myocardial infarction of unspecified site Code(s): I21.3 - ST elevation (STEMI) myocardial infarction of unspecified site Status: Acute Assessment and Plan: Initial STEMI due to occluded RCA. Then acute stent thrombosis yesterday and taken back to the lab. Please see catheterization report for full details. Continue dual anti-platelet therapy. Continue enoxaparin for now. On metoprolol and will add Pedrito as blood pressure allows (2) Hypertension: Code(s): I10 - Essential (primary) hypertension Status: Acute Assessment and Plan: At goal. Stable (3) Polycystic kidney disease: Code(s): Q61.3 - Polycystic kidney, unspecified Status: Acute Assessment and Plan: followed at [facility] (4) Ventricular fibrillation: Code(s): I49.01 - Ventricular fibrillation Status: Acute Assessment and Plan: Will reduce his amiodarone down to 0.5 mg per minute. Transition to oral tomorrow. (5) Ischemic cardiomyopathy: Code(s): I25.5 - Ischemic cardiomyopathy Status: Acute Assessment and Plan: EF 45-50%. Significant RV infarction is noted on echocardiogram. He is short of breath him will gently diuresis 20 mg IV furosemide x1 but will need to pay close attention given the RV nature of his infarction. Will check a PA and lateral chest x-ray. She has some pleuritic chest pain today which is likely due to a combination of compressions. Cannot exclude Jez's. Less likely PE. Already on enoxaparin though. Subjective Date/time seen: 05/04/21 09:20 Interval history: 45-year-old admitted for STEMI Date of service 05/04/2021: Has some pleuritic chest pain. Chest pain is not like his previous myocardial infarction pain. He is a little short of breath also. No syncope. Rhythm has stabilized. No edema Review of Systems Review of Systems: All systems reviewed & are unremarkable except as noted in HPI and below Constitutional: Constitutional: Denies headache(s) and Denies weakness Eyes: Eyes: Denies blurry vision ENT: Reports Normal hearing present, Denies headache(s) and Denies neck pain Cardiovascular: Cardiovascular: Reports chest pain and Reports dyspnea Respiratory: Respiratory: Reports dyspnea Gastrointestinal: Gastrointestinal: Reports nausea and Reports vomiting Genitourinary: Genitourinary: Denies dysuria Musculoskeletal: Musculoskeletal: Denies neck pain and Denies numbness Integumentary/Breasts: Skin/Breast: Denies dry skin and Denies pruritus Neurologic: Reports Normal hearing present, Denies behavioral changes, Denies headache(s), Denies numbness and Denies weakness Psychiatric: Psychiatric: Denies no additional psychiatric complaints and Denies behavioral changes Endocrine: Endocrine: Denies cold intolerance Hematologic/Lymphatic: Hematologic/Lymphatic: Denies easy bleeding Allergic/Immunologic: Allergic/Immunologic: Denies GI upset with certain foods Exam Narrative: awake alert oriented appears to be in distress Const: General: in distress HENMT: General nose exam: Normal nares present Eyes: Sclera: sclerae normal Neck: Neck: supple and no JVD Chest: Other: no reproducible chest wall pain to palpation Resp: Auscultation: clear to auscultation bilaterally Cardio: Rate: regular rate Rhythm: regular rhythm GI: Inspection: non-distended Skin: General skin exam: normal color Other: Right groin is stable but ecchymotic. No bruit or hematoma Neuro: Cranial nerves: Yes Normal hearing present Cognition (Neuro): normal cognition Speech: normal speech Extrem: General: normal to inspection Psych: Mental Status: mental status grossly normal Objective Data Vital Signs Vital Signs:
--- NOTE | 2021-05-04 09:41 | WPDINTPN ---
Progress Note: A&P Assessment and Plan (1) ST elevation (STEMI) myocardial infarction: Qualifiers: Involved coronary artery: unspecified coronary artery Qualified Code(s): I21.3 - ST elevation (STEMI) myocardial infarction of unspecified site Code(s): I21.3 - ST elevation (STEMI) myocardial infarction of unspecified site Status: Acute Assessment and Plan: Inferior SD status post complicated PCI of RCA 05/02. Completed course of Angiomax infusion Repeat cardiac catheterization on 05/03 - Aspiration thrombectomy of mid-distal segment of totally occluded RCA Currently on Dual antiplatelet therapy -aspirin and Brilinta, beta-sue, ARB, statin Patient has been started on therapeutic dose Lovenox continue telemetry monitoring Echocardiogram reviewed (2) Polycystic kidney disease: Code(s): Q61.3 - Polycystic kidney, unspecified Status: Acute Assessment and Plan: Creatinine on presentation 1.7. Baseline creatinine unknown but patient states that his creatinine is above baseline although he is not aware of the actual number Patient was given IV fluids before and after cardiac catheterization for renal protection His creatinine is 1.1 this morning. Monitor urine output electrolytes and creatinine (3) Hypertension: Code(s): I10 - Essential (primary) hypertension Status: Acute Assessment and Plan: Continue beta-sue and JG-inhibitor Currently in controlled range (4) Ischemic cardiomyopathy: Code(s): I25.5 - Ischemic cardiomyopathy Status: Acute Assessment and Plan: ARB and beta-sue ECHO Summary 1. Complete two-dimensional, color flow and Doppler transthoracic echocardiogram is performed with contrast to opacify the left ventricle and to improve the deliniation of the left ventricle endocardial borders. 2. Strain analysis performed. 3. Left ventricular chamber dimension is normal. 4. Left ventricular systolic function is mildly reduced, estimated at 45-50%. 5. There is mildly increased left ventricular wall thickness. 6. The left ventricular diastolic function is grade I diastolic dysfunction. 7. Global longitudinal strain is abnormal at -12 %. 8. The basal inferior wall, mid inferior wall, basal inferoseptal, mid inferoseptal, basal inferolateral wall, and mid inferolateral wall are hypokinetic. 9. Right ventricular chamber dimension is moderately enlarged. 10. Right ventricular systolic function is reduced. 11. There is mild mitral valve regurgitation. 12. There is mild tricuspid valve regurgitation. 13. The aortic root size at the sinus of Valsalva is moderately dilated. (5) Ventricular fibrillation: Code(s): I49.01 - Ventricular fibrillation Status: Acute Assessment and Plan: Likely secondary to STEMI and ischemia requiring 2 DC defibrillation prior to procedure. Patient had another episode in the ICU post 1st cardiac catheterization requiring defibrillation. He had an episode of V-tach which spontaneously converted overnight. No recurrence after 2nd cardiac catheterization. I will replace his potassium and magnesium again today He is currently on amiodarone infusion which will be cut down to half rate by Cardiology Monitor electrolytes and continue telemetry monitoring (6) Hypoxia: Code(s): R09.02 - Hypoxemia Status: Acute Assessment and Plan: Patient on 2 L nasal cannula and this could be congestive heart failure versus atelectasis since patient has been in bed for 3 days Check chest x-ray Incentive spirometry Up in chair Lasix IV has been ordered by Cardiology (7) Chest pain: Code(s): R07.9 - Chest pain, unspecified Status: Acute Assessment and Plan: Noncardiac chest pain at this time which could be pleuritic versus pericarditis from STEMI. Patient did receive 3 DC shock in last 48. Pain control Will give 1 dose of NSAID due to history of HEDY and C
[2021-05-04] MEDS: FUROSEMIDE INJ 40 MG/4 ML VIAL 20 MG IV PUSH (09:51)
[2021-05-04] MEDS: IBUPROFEN 400 MG TABLET 800 MG PO (11:19)
--- NOTE | 2021-05-04 14:12 | ECG_ITS ---
Measurements Intervals Manter Rate: 75 P: 16 NH: 201 QRS: -35 QRSD: 137 T: -46 QT: 433 QTc: 484 Interpretive Statements SINUS RHYTHM BORDERLINE AV CONDUCTION DELAY RIGHT BUNDLE BRANCH BLOCK VOLTAGE CRITERIA FOR LVH INFERIOR INFARCT, PROBABLY RECENT ANTERIOR INFARCT, PROBABLY RECENT BASELINE ARTIFACT- II, III, AVR, AVF ABNORMAL ECG Electronically Signed On 05-04-2021 15:43:57 RECORDS ANALYST by Kong Jefferson D.O.
[2021-05-04] MEDS: KETOROLAC 15 MG/ML VIAL (*BKC) IV PUSH (14:22)
--- NOTE | 2021-05-04 14:39 | PM.EVENT ---
Event Note Event Note Event Note: Patient still complaining of pain 6/10 diffusely around his chest. He states the pain is worse with deep breathing. He is on room air and is heart rate is 75. Chest x-ray showed hypoinflated lungs with atelectasis no pulmonary edema. EKG repeated and shows resolved ST segment elevation in inferior leads. Dr. Wooten was notified and he will review the EKG. Patient is getting a dose of Toradol. 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 Continue pain control.
[2021-05-04] MEDS: FUROSEMIDE INJ 40 MG/4 ML VIAL (14:53)
--- NOTE | 2021-05-04 15:30 | ECG_ITS ---
Measurements Intervals [place] Rate: 78 P: 2 HI: 172 QRS: -35 QRSD: 139 T: -44 QT: 436 QTc: 500 Interpretive Statements SINUS RHYTHM RIGHT BUNDLE BRANCH BLOCK VOLTAGE CRITERIA FOR LVH INFERIOR INFARCT, PROBABLY RECENT ANTERIOR INFARCT, PROBABLY RECENT BASELINE ARTIFACT- I ABNORMAL ECG Electronically Signed On 05-04-2021 15:44:45 [employer] by Kong Jefferson D.O.
--- NOTE | 2021-05-04 17:18 | WPDMODSED ---
Moderate Sedation Note-Pt Data Patient Data Allergies Allergy/AdvReac Type Severity Reaction Status Date / Time No Known Allergies Allergy Verified 05/02/21 11:15 Home Medications Medication Instructions Recorded Confirmed Type amitriptyline 25 mg PO DAILY 05/02/21 05/02/21 History amlodipine-benazepril 1 cap PO DAILY 05/02/21 05/02/21 History bupropion HCl 300 mg PO QAM 05/02/21 05/02/21 History metoprolol ta-hydrochlorothiaz 1 tablet PO DAILY 05/02/21 05/02/21 History [Lopressor HCT] Current Medications: Active Medications Acetaminophen (Acetaminophen 325 Mg Tablet) 650 mg PO Q4H PRN PRN Reason: Headache, Fever or Mild Pain Hydrocodone Bitart/Acetaminophen (Hydrocodone/Acetaminophen (*Crx) 5-325 Mg Tablet) 1 tab PO Q4H PRN PRN Reason: Pain Rated 4-6 Aspirin (Aspirin 81 Mg Chewable Tablet) 81 mg PO DAILY@0800 [facility] Last Admin: 05/04/21 08:46 Dose: 81 mg Documented by: Atorvastatin Calcium (Atorvastatin 40 Mg Tablet) 80 mg PO DAILY [facility] Last Admin: 05/04/21 08:46 Dose: 80 mg Documented by: Enoxaparin Sodium (Enoxaparin 30 Mg/0.3 Ml Syringe) 28 mg SUB-Q Q12HR [facility] Last Admin: 05/04/21 08:48 Dose: 28 mg Documented by: Enoxaparin Sodium (Enoxaparin 100 Mg/Ml Syringe) 100 mg SUB-Q Q12HR [facility] Last Admin: 05/04/21 08:48 Dose: 100 mg Documented by: Amiodarone HCl/Dextrose (Nexterone 360 Mg/D5w 200 Ml) 360 mg in 200 mls @ 16.667 mls/hr IV CONT .Q12H [facility] Last Infusion: 05/04/21 09:51 Dose: 0.5 mg/min, 16.67 mls/hr Documented by: Labetalol HCl (Labetalol Hcl Inj 100 Mg/20 Ml Vial) 20 mg IV PUSH Q4H PRN PRN Reason: SBP > 160 and HR > 60 Losartan Potassium (Losartan Potassium 12.5 Mg Tablet) 12.5 mg PO DAILY [facility] Last Admin: 05/04/21 08:46 Dose: 12.5 mg Documented by: Metoprolol Tartrate (Metoprolol Tartrate 25 Mg Tablet) 25 mg PO Q12HR [facility] Last Admin: 05/04/21 08:48 Dose: 25 mg Documented by: Morphine Sulfate (Morphine Sulfate (*Crx) 4 Mg/Ml Inj) 4 mg IV PUSH Q4H PRN PRN Reason: Severe Pain Morphine Sulfate (Morphine Sulfate (*Crx) 2 Mg/Ml Inj) 2 mg IV PUSH Q3H PRN PRN Reason: Mod pain not cntrold with oral Nitroglycerin (Nitroglycerin Sl 0.4 Mg Tablet) 0.4 mg SUBLINGUAL Q5MIN PRN PRN Reason: Chest Pain Ondansetron HCl (Ondansetron Inj 4 Mg/2 Ml Vial) 4 mg IV PUSH Q4H PRN PRN Reason: Nausea And Vomiting Last Admin: 05/03/21 14:47 Dose: 4 mg Documented by: Ticagrelor (Ticagrelor 90 Mg Tablet) 90 mg PO Q12HR [facility] Last Admin: 05/04/21 08:48 Dose: 90 mg Documented by: Sedation/Anesthesia: No previous sedation/anesthesia problems (including family history). [facility] Past Medical History Medical History Hypertension Polycystic kidney disease Family History Family History Mother Heart disease Father Polycystic kidney disease Social History Social History (Updated 05/02/21 @ 13:42 by Joss Robbins MD) Social History: Smoked long time ago and quit almost 10 years ago, social alcohol and no drug use Smoking status: Never smoker Alcohol intake: unknown Substance use: unknown Spiritual care concerns: No Mod Sed Physical Exam Physical Exam Pre Procedural Exam: Normal: Airway Hours since solid foods: 6 Hours since liquid intake: 6 Mallampati Classification: class II Internal Medicine - PN: Obj Da Vital Signs Vital Signs: Vital Signs - 24 hr 05/03/21 18:00 05/03/21 19:40 05/03/21 20:00 Temperature 36.9 C Pulse Rate 75 76 Respiratory Rate 12 14 Blood Pressure 116/84 114/89 Pulse Oximetry 99 95 95 05/03/21 20:03 05/03/21 20:05 05/03/21 20:09 Temperature Pulse Rate 78 76 76 Respiratory Rate Blood Pressure 114/89 114/89 Pulse Oximetry 05/03/21 21:49 05/03/21 22:00 05/04/21 00:00 Temperature 37.0 C Pulse Rate 75 78 78 Respiratory Rate 16 20 Blood Pressure 116/91 H 124/90 Pulse Oximetry 93 95 05/04/21 02:00 11
--- NOTE | 2021-05-04 17:19 | WPDCARDPROC ---
Cardiac Cath Procedure Note Date of procedure:: 05/04/21 Performing physician:: Alden Wilson MD Procedure Procedure note:: EMERGENT CARDIAC CATHETERIZATION AND PERCUTANEOUS CORONARY INTERVENTION REPORT DATE OF PROCEDURE: 05/04/2021 INDICATION FOR PROCEDURE: Recurrent chest pain in a patient with recent inferior ST-elevation [place], status post mid RCA primary PCI/stenting complicated by acute stent thrombosis BRIEF CLINICAL HISTORY:45-year-old male with hypertension, no known prior cardiac history. Patient presented to [facility] Emergency Room on 05/02/2021 at 11:14 a.m. with complaints of chest pain that started about 45 minutes ago. His EKG showed inferior ST-elevation [place]. He underwent emergent coronary angiogram which showed occluded mid RCA with significant thrombus burden. Patient had primary PCI with aspiration thrombectomy and placement of a 5 x 30 mm resolute giovanny zotarolimus stent at the target lesion by Dr. Rollins. Due to thrombus burden, patient was initiated on eptifibatide and was transferred to the ICU. Per staff, patient had received dual antiplatelet therapy with aspirin and ticagrelor on scheduled intervals. This morning, patient had recurrent chest discomfort with diaphoresis. Although patient's ST segment elevation in the inferior leads had not completely resolved post primary PCI on the day of presentation, his repeat EKG on the following morning showed some worsening of ST elevation in the inferior leads with ST depression in the leads 1 and aVL. In this scenario, patient was brought back to the [facility] emergently yesterday for repeat coronary angiogram. His coronary angiogram showed acute stent thrombosis of the right coronary artery. Patient underwent PCI- aspiration thrombectomy of mid-distal segment of totally occluded RCA using Penumbra VAT RX aspiration thrombectomy catheter with spiritism of sluggish flow followed by intravascular ultrasound (IVUS) of RCA. He was later transferred to ICU, and was continued on antiplatelet therapy, and initiated on anticoagulation with heparin. Today, patient had recurrent chest pain. He has persistent ST elevation in the inferior leads with Q-waves. Due to recurrent chest discomfort, patient was brought to the [facility] to re-evaluate right coronary artery. Prior to arrival to the [facility], I discussed the case with Dr. Ray -CT surgeon at [facility] for possible transfer. Benefits and risks of the procedure were discussed with the patient in depth, and informed consent was obtained prior to the procedure. Risks of the procedure include but are not limited to vascular complications including groin hematoma, retroperitoneal bleed, vessel perforation; periprocedural [place], cardiac arrhythmias, stroke, contrast induced nephropathy, and . After discussing all the benefits, risks and alternatives, patient was willing to proceed with the procedure. PROCEDURES PERFORMED: 1. Selective right coronary angiogram 2. Percutaneous coronary intervention- balloon angioplasty of totally occluded mid RCA with suboptimal results 3. Moderate sedation-CPT code 90718 MODERATE SEDATION: Midazolam 1 mg; fentanyl 25 mcg. Start time 1647 , Stop time 1711 ; Total hyew-iw-yogp time 24 minutes; Addie Garcia RN was trained observer for moderate sedation. ACCESS SITE: Right radial artery PROCEDURE NOTE: After obtaining informed consent, patient was emergently brought to catheterization lab and prepped and draped in a usual sterile manner. After local anesthesia with lidocaine, right radial artery access was taken with micropuncture needle, followed by insertion of a 6 [place] sheath. Patient received 200 mcg of nitroglycerin and 2.5 mg of verapamil through the radial sheath. Selective right coronary angiogram was performed using 5 [place] Helen[place] JR4 diagnostic catheter. RCA angiogram showed recurrent thrombotic occlusion in the mid segment. After 2nd injection, there wa
[2021-05-04] MEDS: NEOMYCIN/POLYMYXIN/BACITRACIN OINTMENT PACKET 1 PACKET (18:18)
[2021-05-04] MEDS: AMIODARONE 360 MG/D5W 200 ML 360 MG/200 ML BAG 16.67 MG IV CONT (19:46)
[2021-05-04] MEDS: ONDANSETRON INJ 4 MG/2 ML VIAL IV PUSH (19:50)
--- NOTE | 2021-05-04 22:14 | PC.NURSE ---
220 left message for that pt had left per EMS. Given room number and phone number for [facility] as well as visiting hours.
--- NOTE | 2021-05-05 15:46 | PM.TDS ---
Transfer Discharge Sum: Prov Provider Date of admission: 05/02/21 11:45 <MATTY Malcolm - Last Filed: 05/05/21 16:21> Primary care physician: Ricky Ryan, PA-C <MATTY Malcolm - Last Filed: 05/05/21 16:21> Admitting clinician: Santino Rollins MD <MATTY Malcolm - Last Filed: 05/05/21 16:21> Consults: 05/02/21 13:03 Cardiopulmonary Rehabilitation Consult Routine Comment: Consult Plan: Evaluate for Eligibility <MATTY Malcolm - Last Filed: 05/05/21 16:21> DS: Admitting Diagnosis Discharge Date 05/04/21 <MATTY Malcolm - Last Filed: 05/05/21 16:21> Admitting Diagnosis STEMI <MATTY Malcolm - Last Filed: 05/05/21 16:21> DS: Discharge Diagnosis Discharge Diagnosis (1) ST elevation (STEMI) myocardial infarction: Qualifiers: Involved coronary artery: unspecified coronary artery Qualified Code(s): I21.3 - ST elevation (STEMI) myocardial infarction of unspecified site <MATTY Malcolm - Last Filed: 05/05/21 16:21> Code(s): I21.3 - ST elevation (STEMI) myocardial infarction of unspecified site <MATTY Malcolm - Last Filed: 05/05/21 16:21> Status: Acute <MATTY Malcolm - Last Filed: 05/05/21 16:21> Assessment and Plan: Initial STEMI due to occluded RCA. Then acute stent thrombosis 05/03 and taken back to the lab for thrombectomy. Recurrent chest pain again on 05/04 and EKG changes therefore he was taken back to the lab once again for coronary angiogram and aspiration thrombectomy. Please see catheterization reports for full details. Plan to transfer to [facility] for higher level of care due to recurrent stent thrombosis. <MATTY Malcolm - Last Filed: 05/05/21 16:21> (2) Hypertension: Code(s): I10 - Essential (primary) hypertension <Nighat DanielCk KatrinJESSICA hummel-C - Last Filed: 05/05/21 16:21> Status: Acute <Nighat BuckleyJESSICA hummel-C - Last Filed: 05/05/21 16:21> Assessment and Plan: At [facility]. Stable <Nighat DanielABE RodriguezN-C - Last Filed: 05/05/21 16:21> (3) Polycystic kidney disease: Code(s): Q61.3 - Polycystic kidney, unspecified <Nighat Autumn Buckleyshaheed TIRE DEBEADER-C - Last Filed: 05/05/21 16:21> Status: Acute <Nighat Autumn JESSICA Wilkes-C - Last Filed: 05/05/21 16:21> Assessment and Plan: followed at [facility] <Nighat Wilkes APN-C - Last Filed: 05/05/21 16:21> (4) Ventricular fibrillation: Code(s): I49.01 - Ventricular fibrillation <Nighat DanielCk Katrin, TIRE DEBEADER-C - Last Filed: 05/05/21 16:21> Status: Acute <Nighat Autumn BuckleyABE hummelN-C - Last Filed: 05/05/21 16:21> Assessment and Plan: Will reduce his amiodarone down to 0.5 mg per minute. Transition to oral tomorrow. <Nighat Wilkes APN-C - Last Filed: 05/05/21 16:21> (5) Ischemic cardiomyopathy: Code(s): I25.5 - Ischemic cardiomyopathy <ABE MalcolmN-C - Last Filed: 05/05/21 16:21> Status: Acute <Nighat Autumn BuckleyABE hummelN-C - Last Filed: 05/05/21 16:21> Assessment and Plan: EF 45-50%. Significant RV infarction is noted on echocardiogram. He is short of breath him will gently diuresis 20 mg IV furosemide x1 but will need to pay close attention given the RV nature of his infarction. Will check a PA and lateral chest x-ray. She has some pleuritic chest pain today which is likely due to a combination of compressions. Cannot exclude Jez's. Less likely PE. Already on enoxaparin though. <Nighat Wilkes APN-C - Last Filed: 05/05/21 16:21> Transfer Discharge Sum: Med Medications Active and Home Medications: Home Medications amitriptyline 25 mg PO DAILY 05/02/21 [History Confirmed 05/02/21] amlodipine-benazepril 1 cap PO DAILY 05/02/21 [History Confirmed 05/02/21] bupropion HCl 300 mg PO QAM 05/02/21 [History Confirmed 05/02/21] metoprolol ta-hydrochlorothiaz [Lopressor HCT] 1 tablet PO DA
== END 2021-05-04 21:57 | disposition short-term general hospital (02) | DRG 246 ==
LOC: ANHED 11:41 → ANHICU 13:16
PROVIDERS: Internal Medicine; Admitting Provider Specialist; Emergency Provider Emergency Medicine; PCP Physician Assistant; Visit Provider Internal Medicine Cardiovascular Disease
PROC: 4A023N7 Measurement of Cardiac Sampling and Pressure, Left Heart, Percutaneous Approach (ICD-10-PCS; CPT 93452; principal; 2021-05-02 12:00)
PROC: 027034Z Dilation of Coronary Artery, One Artery with Drug-eluting Intraluminal Device, Percutaneous Approach (ICD-10-PCS; 2021-05-02 12:00)
PROC: 02703ZZ Dilation of Coronary Artery, One Artery, Percutaneous Approach (ICD-10-PCS; CPT 92920; 2021-05-03 09:00)
PROC: 02703ZZ Dilation of Coronary Artery, One Artery, Percutaneous Approach (ICD-10-PCS; CPT 92973; 2021-05-03 09:00)
PROC: 02703ZZ Dilation of Coronary Artery, One Artery, Percutaneous Approach (ICD-10-PCS; 2021-05-03 09:00)
PROC: 02703ZZ Dilation of Coronary Artery, One Artery, Percutaneous Approach (ICD-10-PCS; CPT 93454; principal; 2021-05-04 16:10)
DX: I21.19 ST elevation (STEMI) myocardial infarction involving other coronary artery of inferior wall (principal); I49.01 Ventricular fibrillation; I46.2 Cardiac arrest due to underlying cardiac condition; Q61.3 Polycystic kidney, unspecified; T82.867A Thrombosis due to cardiac prosthetic devices, implants and grafts, initial encounter; I25.10 Atherosclerotic heart disease of native coronary artery without angina pectoris; I25.5 Ischemic cardiomyopathy; I12.9 Hypertensive chronic kidney disease with stage 1 through stage 4 chronic kidney disease, or unspecified chronic kidney disease; N18.9 Chronic kidney disease, unspecified; R07.81 Pleurodynia; Z79.899 Other long term (current) drug therapy; Z87.891 Personal history of nicotine dependence
CPT/HCPCS: 36415; 71045; 80048; 80053; 80061; 83735; 84484; 85025; 85027; 85610; 85730; 92920; 92973; 93005; 93306; 93454; 93458; 96374; 96375; 99291; A9270; C1725; C1753; C1757; C1760; C1769; C1874; C1887; C1894; C9606; G0269; J0282; J0461; J0583; J1327; J1644; J1650; J1885; J1940; J2250; J2270; J2405; J3010; J3475; J3480; J7030; J7040; Q9957